=== PATIENT | male | born 1995 | race Caucasian/White ===

== ENCOUNTER 2019-11-06 10:19 | Emergency (ER) | payer MEDICAID ==
[~2019-11-06] VITALS: Ht 182.9 cm; Wt 65.0 kg
[2019-11-06 10:23] VITALS: BP 114/79
[2019-11-06] MEDS ORDERED: LORA-247 PO (10:30)
[2019-11-06] MEDS ORDERED: FAMO-79 PO (10:31)
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
--- NOTE | 2019-11-06 10:36 | NUR ---
RT ARM: LARGE ABRASIONS, LAC EXTENDING DISTALLY FROM ELBOW.
[2019-11-06] MEDS ORDERED: BUPIVACAINE/PF-EPI 0.25% 1:200K SQ ONE (11:00)
[2019-11-06] MEDS ORDERED: LIDOCAINE-MPF 1%, 5ML INFIL ONE (11:00)
[2019-11-06] MEDS ORDERED: LIDOCAINE-MPF 1%, 2ML ONE (11:03)
[2019-11-06] MEDS ORDERED: BUPIVACAINE 0.25% ONE (11:03)
--- NOTE | 2019-11-06 11:13 | NUR ---
XYLOCAINE AND SENSORCAINE 0.25% GIVEN TO PROVIDER FOR ADMINISTRATION. SENSORCAINE/EPI ORDER CHANGED TO SENSORCAINE: MELLISA HODGSON.
== END 2019-11-06 12:14 | disposition home or self-care (01) ==
LOC: ED 11:06
DX: S51.811A Laceration without foreign body of right forearm, initial encounter (principal); S51.011A Laceration without foreign body of right elbow, initial encounter; W18.30XA Fall on same level, unspecified, initial encounter; Y93.89 Activity, other specified; Y92.410 Unspecified street and highway as the place of occurrence of the external cause; Y99.8 Other external cause status
CPT/HCPCS: 12032; 99284